=== PATIENT | female | born 1970 | race Caucasian/White ===

== ENCOUNTER → 2018-10-11 | Outpatient (CLI) | payer BC ==
--- NOTE | 2018-10-11 14:25 | MRI ---
Study: MRI of the Right Knee. Indication: SPRAIN OF ANTERIOR CRUCIATE LIAMENT OF RIGHT KNEE Technique: Multiplanar, multi sequence MRI of the right knee was obtained without intravenous contrast. Comparison: None. Findings: ACL, PCL, MCL, and lateral collateral ligament complex intact. Prominent oblique horizontal cleavage tearing of the posterior horn and body medial meniscus with extension into the anterior horn with mild intrasubstance cystic change at this site. In addition, superficial to the junction anterior horn and body there is an 11 mm para meniscal cyst. Millimetric cyst formation posterior to the posterior horn/root noted as well. Lateral meniscus intact. Grade 2 and 3 chondral thinning of the medial compartment and to a lesser extent lateral compartment. Patella normally located. No high-grade chondral defect patellofemoral compartment. Moderate size knee effusion. No acute fracture. Impression: Prominent horizontal cleavage tear posterior horn and body medial meniscus extending into the anterior horn with intrasubstance and intrasubstance cystic formation as above. Grade 2-3 chondral thinning medial and lateral knee compartments. Moderate size knee effusion. Electronically signed by: Kennedy Whitfield MD 10/11/2018 2:22 PM [facility]
== END ==
LOC: MRI 08:43
PROVIDERS: ATTEND Surgery
DX: S83.511A Sprain of anterior cruciate ligament of right knee, initial encounter (principal); S83.241A Other tear of medial meniscus, current injury, right knee, initial encounter; M25.461 Effusion, right knee

== ENCOUNTER → 2018-11-21 | Outpatient (CLI) | payer BC ==
--- NOTE | 2018-11-21 09:11 | RAD ---
EXAM DESCRIPTION: Pelvis CLINICAL HISTORY: 48 years Female, M25.561, M25.551 COMPARISON: None. FINDINGS: No fracture. No hip dislocation. Moderate amount of fecal material throughout the colon. L-spine, sacrum and bones of the pelvic ring appear intact. Metal densities overlying are thought to be clothing artifacts. No abnormal calcifications. IMPRESSION: Large fecal burden. Otherwise negative. Electronically signed by: Raheel Robison MD 11/21/2018 9:08 AM CDT
--- NOTE | 2018-11-21 09:14 | RAD ---
EXAM DESCRIPTION: Knee,Right Complete CLINICAL HISTORY: 48 years, Female, M25.561, M25.551 COMPARISON: None TECHNIQUE: Four views of the right knee FINDINGS: No fracture or dislocation. Bones appear normally mineralized with normal trabecular pattern. Normal appearance of medial and lateral compartments on frontal view. Lateral view shows normal position of the patella. On the lateral view, density posteriorly centimeters fabella. Density anteriorly could be calcification of a meniscus or small intra-articular loose body. No patellar spurring or enthesopathy. No suprapatellar knee joint effusion. Normal contour of quadriceps and patellar tendons. No abnormal patellar tilt or subluxation on patellar sunrise view. IMPRESSION: Negative for fracture or dislocation. Electronically signed by: Raheel Robison MD 11/21/2018 9:11 AM CDT
== END ==
LOC: RAD 08:17
PROVIDERS: ATTEND Orthopaedic Surgery
DX: M25.551 Pain in right hip (principal); M25.561 Pain in right knee

== ENCOUNTER 2019-01-30 22:06 | Emergency (ER) | payer BC ==
[2019-01-30] MEDS: KETOROLAC TROMETHAMINE INJ 30 MG/ML VIAL IM ONE (22:26)
--- NOTE | 2019-01-30 22:27 | ED.PDOC ---
History of Present Illness - General Chief Complaint: Lower Extremity Injury Stated Complaint: right knee pain Time Seen by Provider: 01/30/19 22:22 Source: patient Exam Limitations: no limitations - History of Present Illness Initial Comments: Patient presents with acute on chronic right knee pain. She says that an MRI showed that she had cartilage damage and she is supposed to have an arthroscopy next week with Dr. Chahal. Ar[place]ia she was walking through her house and felt a "pop". She now has sharp, throbbing pain located throughout the joint but more intense on the posterior and medial aspects. She felt a shooting sensation down to her right ankle as well. She refuses to bear weight on the right leg. She is taking advil for the pain but nothing else. No other complaints. Timing/Duration: 1/2 hour Severity: moderate Improving Factors: rest Worsening Factors: movement Associated Symptoms: denies symptoms Allergies/Adverse Reactions: Allergies Codeine Allergy (Verified 01/30/19 22:22) demerol Allergy (Uncoded 01/30/19 22:22) Home Medications: Ambulatory Orders Escitalopram Oxalate 5 mg PO DAILY 01/30/19 Ketorolac Tromethamine [Toradol Tabs] 10 mg PO Q6HRS #12 tab 01/30/19 Review of Systems - Review of Systems Constitutional: States: no symptoms reported EENTM: States: no symptoms reported Respiratory: States: no symptoms reported Cardiology: States: no symptoms reported Gastrointestinal/Abdominal: States: no symptoms reported Genitourinary: States: no symptoms reported Musculoskeletal: States: see HPI Skin: States: no symptoms reported Neurological: States: no symptoms reported Endocrine: States: no symptoms reported Hematologic/Lymphatic: States: no symptoms reported Past Medical History (General) - Patient Medical History Surgical History: appendectomy, cholecystectomy, Hysterectomy - Vaccination History Hx Influenza Vaccination: No - Female History Patient : No - hysterectomy Family Medical History - Family History Father Family History: Unknown Physical Exam - Physical Exam General Appearance: Alert Respiratory: lungs clear, normal breath sounds Cardiovascular/Chest: normal peripheral pulses, regular rate, rhythm Gastrointestinal/Abdominal: normal bowel sounds, non tender, soft Extremity: other - Varus test and valgus test both elicit pain at the medial collateral ligament and popliteal fossa. There is no edema nor redness. Right medial and lateral malleoli are NTTP. The patient has full sensation throughout the entire left leg. No pain with AROM of the right hip. Neurologic: no motor/sensory deficits, alert, normal mood/affect, oriented x 3 Skin Exam: normal color Progress - Progress Progress: 01/30/19 23:43 Radiographs of the right knee showed a fluid collection in the joint. Right ankle films were negative. Patient's pain improved with toradol 30 mg IM x one. She was supplied with a knee immobilizer and crutches. Given an RX for Toradol and instructed to call Dr. Chahal's office in the morning. Care instructions given. E.R. warnings given. Questions were elicited and answered. Patient voiced understanding and agreement with the plan. Departure - Departure Clinical Impression: Knee arthropathy Disposition: Discharge to Home or Self Care Condition: Fair Departure Forms: ED Discharge - Pt. Copy, Patient Portal Self Enrollment Instructions: DI for Knee Pain Diet: resume usual diet Activity: other - No weight bearing on the right leg. Referrals: BRISA BELLO [Primary Care Provider] - 1-2 Weeks Prescriptions: Ketorolac Tromethamine [Toradol Tabs] 10 mg PO Q6HRS #12 tab Home Medications: Ambulatory Orders Escitalopram Oxalate 5 mg PO DAILY 01/30/19 Ketorolac Tromethamine [Toradol Tabs] 10 mg PO Q6HRS #12 tab 01/30/19 Additional Instructions: Call Dr. Chahal's office in the morning for further instructions. Use ice on the painful area applied through a towel.
--- NOTE | 2019-01-30 22:48 | RAD ---
3 VIEWS RIGHT ANKLE RADIOGRAPHIC SERIES. INDICATIONS: Pain post knee injury. COMPARISONS: No comparison ankle radiographs are available. FINDINGS: No fractures or dislocations. Right tibiotalar joint appears intact. The talus and calcaneus are intact. No lytic or blastic bone lesions. No radiopaque soft tissue foreign bodies or soft tissue gas. IMPRESSION: Normal examination. Electronically signed by: Sean Carlos MD 01/30/2019 10:46 PM CDT
--- NOTE | 2019-01-30 23:11 | RAD ---
EXAM: 3 VIEWS RIGHT KNEE RADIOGRAPHS CLINICAL INDICATION: Right knee pain post popping sensation. COMPARISON: No comparisons are currently available. FINDINGS: Small suprapatellar joint effusion without layering fat. No fractures or dislocations. Joint compartments are well preserved. No lytic or blastic bone lesions. No radiopaque soft tissue foreign bodies or soft tissue gas. IMPRESSION: Small joint effusion suggesting internal derangement of the right knee. Otherwise, normal examination. Electronically signed by: Sean Carlos MD 01/30/2019 11:09 PM CDT
[2019-01-31 00:07] VITALS: BP 124/83; TEMP 98.1; O2SAT 98
== END 2019-01-31 00:06 | disposition home or self-care (01) ==
LOC: ER 22:06
DX: M12.861 Other specific arthropathies, not elsewhere classified, right knee (principal); Z88.5 Allergy status to narcotic agent
CPT/HCPCS: 73562; 73610; J1885

== ENCOUNTER → 2019-04-19 | Outpatient (CLI) | payer BC ==
--- NOTE | 2019-04-20 11:19 | CT ---
Procedure: CT LUNG SCREENING Exam Date: 01/18/2019. Ordering Provider: BRISA BELLO Clinical Indication: PERSONAL HISTORY OF TOBACCO USE. Current cigarette smoker. 17 pack years. Comparison: None. Technique: Using a multislice scanner, sequential helical axial imaging was obtained in the thorax, 2.5 mm thickness, 2.5 mm separation, from the level of the thoracic inlet through the lung bases without IV contrast. A low dose protocol was utilized for BMI less than 30: BMI: 17.7. CTDI: 1.76 mGy. 120. kVp. 45 mA. DLP 75.57 mGy-centimeters. 2D sagittal and coronal reconstructed images, 6.0 mm thickness, were obtained. This exam was performed according to our departmental dose optimization program which includes use of automated exposure control, adjustment of the mA and/or kV according to patient size and/or use of iterative reconstruction technique. Nodule measurements under 10 mm are given as mean value of 3 axes diameters. FINDINGS: Lungs and large airways: Bilateral dilated airspaces with blebs and bulla in the parenchyma paraseptal distribution more right than left and more upper lung barger than lower. Partially solid nodule left apex with solid component measuring 3.4 mm. Extensions to the pleura. Axial series 2, image 26. 4 mm part solid nodule versus pleural thickening right apex on image 2/22. Extensions to the pleura. Other smaller nodules versus focal pleural thickening in the right apex less than 3 mm. Pleura and space: Bilateral intermittent focal pleural thickening with no effusion or pneumothorax. Mediastinum and gina: evaluation limited by low dose technique and lack of IV contrast. Small nodes but no dominant soft tissue masses. Heart and great vessels: Unremarkable. Chest wall, lower neck, axillae: Evaluation also limited by same factors as described above. Calcification upper right breast. Small thyroid gland. Upper abdomen: Evaluation limited by low-dose technique. No free fluid or free air in the included peritoneal space. Surgical clips gallbladder fossa. Osseous structures: Evaluation limited by low dose MIP technique. Negative. IMPRESSION: 1. Emphysematous changes in the lungs more peripheral lung barger than lower lung barger and more right than left. Bilateral nodules versus focal pleural thickening.. [facility] Best Practice recommendations: Please see below for Lung RADS category and FOLLOW-UP.* *Lung RADS category CATEGORY 2- Nodules with a very low likelihood (less than 1%) of becoming a clinically active cancer due to size or lack of growth. Nodules: Perifissural nodule(s) < 10 mm. (526mm3). Solid or part solid nodule(s) less than 6mm (113.1 mm3), new solid nodule less than 4mm (33.5 mm3). Ground glass nodule(s) less than 30mm (22806.2 mm3) or unchanged or slow growing ground glass nodule 30mm or greater. Cat 3 or 4 nodule unchanged for 3 or more months. FOLLOW-UP: Continue annual screening with a Low Dose Chest CT in 12 months for re-evaluation. 2. Calcification in the upper left breast. If patient is not currently enrolled in a breast mammographic screen program, in the past 12 months, consider entering patient into a local program, such as the program at this facility. Electronically signed by: Tru Ty MD 04/20/2019 11:17 AM CDT
== END ==
LOC: CT 09:30
PROVIDERS: ATTEND Emergency Medicine
DX: Z87.891 Personal history of nicotine dependence (principal); J43.9 Emphysema, unspecified; R91.8 Other nonspecific abnormal finding of lung field; R92.8 Other abnormal and inconclusive findings on diagnostic imaging of breast

== ENCOUNTER → 2019-06-01 | Outpatient (CLI) | payer BC ==
--- NOTE | 2019-06-02 15:04 | MAM ---
EXAM DESCRIPTION: Diagnostic Mammo,Bilateral (accession [id number]), Breast,Bilateral (accession [id number]): Ultrasound CLINICAL HISTORY: 48 yearsFemaleOTHER SPECIFIED DISORDERS OF BREAST . No complaints. "Fibrocystic disease." No personal history of breast cancer. Mother with breast cancer at age 49. Remote family history of breast and ovarian cancer. Menarche age 11. Childbirth. Postmenopausal over one year. No HRT. Benign right breast biopsy for "multiple calcifications". Lifetime risk of developing breast cancer (Tyrer-Cuzick model)(%): 22.4. COMPARISON: Prior digital mammographic studies are not yet available 4 comparison. No prior reports. TECHNIQUE: Bilateral LM, CC, and MLO projection full-field images, right breast LM Spot compression, digital mammographic tomosynthesis technique. Bilateral 2-D digital full-field images. CC, MLO, and LM projections. Spot compression anterior right breast LM and CC projections CAD not utilized. . Transcutaneous scanning of the bilateral breasts utilizing gomez-scale and Doppler modes. Scanning performed by the activity therapy specialist ; observation by Dr. Ty. FINDINGS: The breast parenchymal density pattern is: Heterogeneously dense breast tissue, which may obscure small masses. No skin thickening or nipple retraction bilaterally. Bilateral groups of microcalcifications associated with the dense fibroglandular tissues more right breast and left. Most prominent groups of microcalcifications are lateral and slightly superior to the posterior nipple line in the anterior middle third of the right breast along with solitary microcalcifications and coarse calcifications. At least 4 groups are visualized on orthogonal images. Relatively circumscribed 1 cm mass density anterior left breast lower inner quadrant 4:00 position. Ultrasound: Mostly fibroglandular and fibrocystic tissues retroareolar and anterior left breast. One mass showing anechoic and hypoechoic tissues questionable lobulation and angulation measuring 8.7 x 5.5 mm. Mostly posterior acoustic enhancement. Other cysts are anechoic with circumscribed margins wider than tall orientation and posterior acoustic enhancement measuring less than 5 mm to greater than 1.2 cm. IMPRESSION: Microcalcifications in groups in the right breast. Complex retroareolar lesion left breast. BI-RADS CATEGORY: 0 - INCOMPLETE- Need additional imaging evaluation. FOLLOW-UP: Recall for additional imaging: additional imaging. Written communication explaining the IMPRESSION and follow-up, will be mailed to the patient and referring health care provider. The FINDINGS and the FOLLOW-UP plan were reviewed in person with the patient after the examination. Electronically signed by: Tru Ty MD 06/02/2019 3:02 PM CDT
== END ==
LOC: MAMMO 08:29
PROVIDERS: ATTEND Emergency Medicine
DX: N64.89 Other specified disorders of breast (principal); R92.0 Mammographic microcalcification found on diagnostic imaging of breast